=== PATIENT | female | born 1970 | race Caucasian/White ===

== ENCOUNTER 2019-03-03 10:39 | Outpatient (CLI) | payer BC ==
--- NOTE | 2019-03-03 11:07 | MMO ---
Bilateral MAMMO Bilat Screen [facility]. CLINICAL HISTORY: Patient is 48 years old and is seen for screening. The patient has no family history of breast cancer. The patient has no personal history of cancer. VIEWS: The views performed were: bilateral craniocaudal with tomosynthesis and bilateral mediolateral oblique with tomosynthesis. FILMS COMPARED: The present examination has been compared to prior imaging studies performed at [facility] on 05/08/2011, 11/20/2011, 11/22/2012 and 11/29/2013. MAMMOGRAM FINDINGS: The breasts are heterogeneously dense, which could obscure a lesion on mammography. There are no suspicious masses, suspicious calcifications, or new areas of architectural distortion. IMPRESSION: THERE IS NO MAMMOGRAPHIC EVIDENCE OF MALIGNANCY. A ROUTINE FOLLOW-UP MAMMOGRAM IN 1 YEAR IS RECOMMENDED. THE RESULTS OF THIS EXAM WERE SENT TO THE PATIENT. ACR BI-RADS Category 1 - Negative MAMMOGRAPHY NOTE: 1. A negative mammogram report should not delay a biopsy if a dominant of clinically suspicious mass is present. 2. Approximately 10% to 15% of breast cancers are not detected by mammography. 3. Adenosis and dense breasts may obscure an underlying neoplasm.
== END 2019-03-03 10:40 | disposition home or self-care (01) ==
LOC: BICMAMMO 10:39
PROVIDERS: ATTEND Obstetrics & Gynecology
DX: Z12.31 Encounter for screening mammogram for malignant neoplasm of breast (principal)
CPT/HCPCS: 77063; 77067

== ENCOUNTER 2020-02-06 11:38 | Outpatient (CLI) | payer BC ==
--- NOTE | 2020-02-06 13:40 | MRI ---
MRI lumbar spine without and with IV contrast HISTORY: Low back pain. Disc herniation. Left leg radiculopathy. COMPARISON: 06/03/2019. FINDINGS: The conus medullaris has a normal appearance. Vertebral body heights are maintained. Multil evel discogenic endplate changes and Schmorl's nodes through the endplates. Mild degenerative changes of the partially visualized lower thoracic spine. T12-L1: Disc space narrowing. Mild posterior disc bulge. Circumferential degenerative changes. Mild t o moderate stenosis of the central canal. Neural foramina are patent. L1-2: Schmorl's nodes through the endplates. Disc hydration is maintained. Mild disc bulge to the lef t of midline. No significant central canal stenosis. Neural foramina are patent. L2-3: Central canal and neural foramina are patent. Osteophytosis with mild facet joint fluid. L3-4: Posterior operative decompression. Prominent diffuse posterior disc bulge slightly effacing the ventral aspect of the thecal sac. Osteophytosis of the facets. Mild to moderate bilateral foraminal stenoses. L4-5: Desiccation of the disc. Mild posterior disc bulge. Posterior annular fissure is less conspicuo us than on the prior study. Circumferential degenerative changes. Mild stenosis of the central canal. Moderate bilateral foraminal stenoses, left greater than right. L5-S1: Mild osteophytosis. Central canal and neural foramina are patent. IMPRESSION : Interval posterior operative decompression at the L3-4 level. No evidence of complication. Posterior disc bulge at this level is less pronounced. There is no significant compression of the thecal sac or nerve roots. Multilevel mild to moderate degenerative changes throughout the lumbar spine elsewhere as detailed ab castillo.
== END 2020-02-06 11:39 | disposition home or self-care (01) ==
LOC: SCSMRI 11:38
PROVIDERS: ATTEND Neurological Surgery
DX: M51.26 Other intervertebral disc displacement, lumbar region (principal); M47.816 Spondylosis without myelopathy or radiculopathy, lumbar region; M47.815 Spondylosis without myelopathy or radiculopathy, thoracolumbar region; M51.9 Unspecified thoracic, thoracolumbar and lumbosacral intervertebral disc disorder; Z98.890 Other specified postprocedural states
CPT/HCPCS: 72158

== ENCOUNTER 2020-05-08 09:47 | Outpatient (CLI) | payer BC ==
--- NOTE | 2020-05-08 10:25 | RAD ---
RADIOGRAPH CERVICAL SPINE 4 VIEWS: DATE: 05/08/2020 HISTORY: 49-year-old female with "intervertebral disc disorder with radiculopathy" TECHNIQUE: All standing views. AP. Lateral neutral, flexion, and extension. FINDINGS: 5 lumbar-type vertebrae. No high-grade vertebral body collapse. Laminectomy defect at L3-4. Disc space narrowing is mild at L2-3, and mild-moderate at L3-4 and L4-5. Minimal retrolisthesis of L2 on L3. Schmorl's nodes at L1-2 and L2-3 and T12-L1. No anterolisthesis identified at any level. No instability between flexion and extension. 17 degree levoscoliosis (measured from superior endplate of L1 to superior endplate of L5). Fulcrum a t L3. IMPRESSION: 1) mild levoscoliosis. 2.) Status post laminectomy at L3-4. 3) modest degenerative disc changes. 4) no instability.
== END 2020-05-08 09:48 | disposition home or self-care (01) ==
LOC: BICRAD 09:47
PROVIDERS: ATTEND Specialist
DX: M51.16 Intervertebral disc disorders with radiculopathy, lumbar region (principal); M41.9 Scoliosis, unspecified; Z98.890 Other specified postprocedural states
CPT/HCPCS: 72110

== ENCOUNTER 2021-01-11 22:30 | Emergency (ER) | payer BC ==
[2021-01-11] MEDS ORDERED: Diazepam 5 MG TAB ONE (23:43)
[2021-01-11] MEDS ORDERED: Morphine 10 MG/ML VIAL ONE (23:43)
== END 2021-01-12 00:05 | disposition home or self-care (01) ==
LOC: ERS 22:30
DX: M54.5 Low back pain (principal); E03.9 Hypothyroidism, unspecified; Z79.899 Other long term (current) drug therapy
CPT/HCPCS: 96372; 99283; J2270

== ENCOUNTER 2021-01-16 10:18 | Outpatient (CLI) | payer BC | END 2021-01-16 10:19 | disposition home or self-care (01) | LOC: BICRAD 10:18 | PROVIDERS: ATTEND Neurological Surgery | DX: M54.5 Low back pain (principal); M47.816 Spondylosis without myelopathy or radiculopathy, lumbar region; M41.9 Scoliosis, unspecified | CPT/HCPCS: 72110 ==

== ENCOUNTER 2021-02-04 08:48 | Outpatient (CLI) | payer BC | END 2021-02-04 08:49 | disposition home or self-care (01) | LOC: CT 08:48 | PROVIDERS: ATTEND Neurological Surgery | DX: M54.5 Low back pain (principal); M47.816 Spondylosis without myelopathy or radiculopathy, lumbar region; Z98.890 Other specified postprocedural states | CPT/HCPCS: 72131 ==

== ENCOUNTER 2021-06-18 20:02 | Emergency (ER) | payer BC ==
[2021-06-18] MEDS ORDERED: Ketorolac Tromethamine 30 MG/ML VIAL ONE (22:16)
[2021-06-18] MEDS ORDERED: Cyclobenzaprine 10 MG TAB ONE (22:45)
[2021-06-18] MEDS ORDERED: Morphine 4 MG/ML VIAL ONE (23:33)
[2021-06-18] MEDS ORDERED: Lidocaine 5% Patch TD SCH (23:45)
[2021-06-19] MEDS ORDERED: Transdermal Patch Removal TOP SCH (12:00)
== END 2021-06-19 00:32 | disposition home or self-care (01) ==
LOC: ERS 20:02
DX: M62.830 Muscle spasm of back (principal); E03.9 Hypothyroidism, unspecified; Z79.899 Other long term (current) drug therapy
CPT/HCPCS: 96372; 96374; J1885; J2270

== ENCOUNTER 2021-07-01 12:51 | Outpatient (CLI) | payer BC | END 2021-07-01 12:52 | disposition home or self-care (01) | LOC: TBSIIMAG 12:51 | PROVIDERS: ATTEND Neurological Surgery | DX: M54.5 Low back pain (principal); Z98.890 Other specified postprocedural states | CPT/HCPCS: 72110 ==

== ENCOUNTER 2021-07-19 12:52 | Outpatient (CLI) | payer BC ==
[~2021-07-19 12:52] MED LIST: Magnevist 469MG/ML 20 ML VIAL ONE
== END 2021-07-19 12:53 | disposition home or self-care (01) ==
LOC: BICMRI 12:52
PROVIDERS: ATTEND Neurological Surgery
DX: M51.16 Intervertebral disc disorders with radiculopathy, lumbar region (principal); M47.26 Other spondylosis with radiculopathy, lumbar region; M48.061 Spinal stenosis, lumbar region without neurogenic claudication; L90.5 Scar conditions and fibrosis of skin; Z98.890 Other specified postprocedural states
CPT/HCPCS: 72158; A9579

== ENCOUNTER 2024-04-05 08:13 | Outpatient (CLI) | payer BC | END 2024-04-05 08:14 | disposition home or self-care (01) | LOC: SCSMRI 08:13 | PROVIDERS: ATTEND Nurse Practitioner Family | DX: M47.26 Other spondylosis with radiculopathy, lumbar region (principal); M51.16 Intervertebral disc disorders with radiculopathy, lumbar region; Z98.890 Other specified postprocedural states | CPT/HCPCS: 72148 ==